=== PATIENT | female | born 1975 | race Hispanic/Latino ===

== ENCOUNTER 2016-09-19 10:12 | Emergency (ER) | payer OTHER ==
[2016-09-19 10:26] VITALS: BP 131/87
[2016-09-19] MEDS ORDERED: MOTRIN PO ONE ×2 (11:09→11:21)
--- NOTE | 2016-09-19 11:22 | Emergency Department Report ---
Upper Extremity - [facility] Chief Complaint: Skin/Abscess/Foreign Body Stated Complaint: LUMP ON RT SHOULDER Time Seen by Provider: 09/19/16 10:58 Upper Extremity: Right Shoulder (pain 7 out of 10. ) Occurred When: 4 Days Severity: mild Symptoms: Yes Pain with Movement (minimal), No Deformity, No Limited Range of Movement, No Numbness, No Weakness, No Swelling, No Bruising/Ecchymosis, No Laceration or Abrasion ED Review of Systems ROS: Stated complaint: LUMP ON RT SHOULDER Other details as noted in HPI This is 41-year-old female that presents with right shoulder pain since last . Patient denies any injury or trauma. Patient stated that laying on her side of her older makes the pain worse. Patient stated a heating pads makes the pain better. Patient describes pain level of 7 out of 10. Denies any drug allergies. Patient stated has slight pain during range of motion. 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 Stated that she carries a lot of trays when working. Patient denies any numbness or tingling sensation. Patient seen toxic or in distress. Comment: All other systems reviewed and negative Constitutional: denies: chills, fever Eyes: denies: eye pain, eye discharge, vision change ENT: denies: ear pain, throat pain Respiratory: denies: cough, shortness of breath, wheezing Cardiovascular: denies: chest pain, palpitations Endocrine: no symptoms reported Gastrointestinal: denies: abdominal pain, nausea, diarrhea Genitourinary: denies: urgency, dysuria, discharge Musculoskeletal: denies: back pain, joint swelling, arthralgia Skin: denies: rash, lesions Neurological: denies: headache, weakness, paresthesias Psychiatric: denies: anxiety, depression Hematological/Lymphatic: denies: easy bleeding, easy bruising ED Past Medical Hx - Past Medical History Previous Medical History?: Yes Additional medical history: thyroid - Surgical History Past Surgical History?: Yes Additional Surgical History: hernia surgery, tubaligation - Social History Smoking Status: Never Smoker Substance Use Type: None - Medications Home Medications: Home Medications Medication Instructions Recorded Confirmed Last Taken Type Ibuprofen [Motrin] 800 mg PO Q8HR PRN #60 tablet 03/22/15 Unknown Rx traMADol [Ultram] 50 mg PO Q6HR PRN #14 tablet 03/22/15 Unknown Rx Naproxen [Naprosyn TAB] 500 mg PO PRN PRN #20 tablet 09/19/16 Unknown Rx Upper Extremity Exam - Exam General: Vital signs noted. No distress. Alert and acting appropriately. Pain 7 out of 10 while performing range of motion. Denies any numbness or tingling sensation. Capillary refill is presents with loss. Denies any trauma or blunt injury to area. No erythema noted or swelling. Negative drop arm. Normal abduction and internal/external rotation. Patient denied tenderness in subacromial space or posterior shoulder Negative Neer test Normal shoulder strength Normal neck exam noted. Patient denies any pain that radiates Right AC joint tenting Head and Torso: No HEENT Abnormality, No Neck Tenderness, No Chest/Lungs Abnormality, No Abdominal Tenderness, No Back Tenderness Shoulder Exam: Yes Shoulder Tenderness, Yes Normal Range of Motion in Shoulder ( slightly pain felt), No Clavicle Tenderness, No Shoulder Deformity, No AC Joint Tenderness Arm Exam: No Arm/Humerus Tenderness, No Arm Deformity Elbow: Yes Normal Range of Motion in Elbow, No Elbow Tenderness, No Elbow Deformity Forearm: No Forearm Tenderness, No Forearm Deformity, No Pain with Pronation, No Pain with Supination Wrist: Yes Normal ROM in Wrist, No Wrist Tenderness, No Wrist Deformity, No Snuffbox Tenderness, No Pain with Axial Thumb Compression Hand: Yes Normal ROM in Digit(s), No Hand Tenderness, No Hand Deformity, No Digit Tenderness, No Digit(s) Deformity, No Tendon Dysfunction CMS Exam: Yes Normal Distal Pulses, Yes Normal Capillary Refill, Yes Normal Distal Sensation, No Broken Skin ED Course Vital Signs 09/19/16 10:24 Temperature 98.3 F Pulse Rate 77 Respiratory 16 Rate Blood Pressure 131/87 O2 Sat by Pulse 100 Oximetry - Reevaluation(s) Reevaluation #1: 09/19/16 13:02 Level now is a 3 out of 10. Stated that she feels much better after receiving ibuprofen ED Medical Decision Making - Medical Decision Making Ed course: A 41-year-old female that presents with right shoulder pain. 1- x-ray results dictated by Dr. Hong: normal study with normal joint aligment 2-I prescribed ibuprofen at this time. Patient level is 3 out of 10 now. She stated that she feels much better. 3-I instructed the patient to RICE follow-up with orthopedic doctor in 3-5 days. 4- at this time of discharge the patient is nontoxic in appearance or in any distress. 5- I ordered a sling of affected extremity 6- at this time the patient is aware of discharge plan and has no further questions. Critical care attestation.: If time is entered above; I have spent that time in minutes in the direct care of this critically ill patient, excluding procedure time. ED Disposition Clinical Impression: Arthralgia of shoulder region, right Shoulder pain, right Qualifiers: Chronicity: acute Qualified Code(s): M25.511 - Pain in right shoulder Disposition: DISCHARGED TO HOME OR SELFCARE Is pt being admited?: No Does the pt Need Aspirin: No Condition: Stable Instructions: Naproxen (By mouth), Arthralgia (ED), RICE Therapy (ED) Additional Instructions: Please follow up with orthopedic doctor in 3-5 days. If pain worsens, such as swelling, numbness, tingling please report back to emergency room. Past, ice, elevation of the affected limb. Prescriptions: Naproxen [Naprosyn TAB] 500 mg PO PRN PRN #20 tablet PRN Reason: Pain Referrals: PRIMARY CARE, [Primary Care Provider] - 3-5 Days ERON DAVID MD [Staff Physician] - 3-5 Days Forms: Work/School Release Form(ED)
--- NOTE | 2016-09-19 12:15 | XRay Report ---
RIGHT SHOULDER: History: Right shoulder pain. Routine views demonstrate normal bony and soft tissue structures with normal joint alignment of the shoulder. IMPRESSION: Normal study.
== END 2016-09-19 13:24 | disposition home or self-care (01) ==
LOC: ED 10:12
DX: M25.511 Pain in right shoulder (principal)

== ENCOUNTER 2019-08-22 13:07 | Outpatient (CLI) | payer BC ==
--- NOTE | 2019-08-22 15:07 | Mammography Report ---
BILATERAL DIGITAL DIAGNOSTIC MAMMOGRAM -- 08/22/2019 RIGHT LIMITED BREAST ULTRASOUND INDICATION: Right lateral breast palpable finding an area of tenderness, patient due for annual bilat eral mammogram. TECHNIQUE: Digital bilateral mammographic imaging was performed. COMPARISON: 05/25/2018, 09/19/2016, 02/17/2016. FINDINGS: Breast Density: There are scattered areas of fibroglandular density. There is a triangular metallic marker which overlies the right lateral breast and mcleod the site of r eported palpable finding for which no mammographic correlate is identified. Right lower axillary tail circumscribed reniform/oval lesion is stable. Long-term stability would support a benign etiology. N o new or suspicious findings within either breast. A targeted ultrasound focused in the region of the palpable finding in the area pain at the 9:00/10:0 0 position was performed. There is no suspicious solid or cystic lesion. No sonographic correlate. In cidentally noted is a 8 x 13 x 5 mm lymph node more posteriorly. This would correspond with the lymph node which appears stable mammographically. IMPRESSION: No mammographic or sonographic correlate to explain reported right lateral breast palpable finding in the area of tenderness. Clinical management is recommended. A routine screening mammogram in one yea r would be appropriate, unless imaging is clinically indicated sooner. BI-RADS Category 2: Benign. Recommend routine screening mammography in one year A "normal" or negative report should not discourage follow up or biopsy of a clinically significant f inding. A written summary of these findings will be mailed to the patient. The patient will be entered into a mammography reporting system which will generate a reminder letter for the patient's next appointmen t at the appropriate interval. According to the [employer], yearly mammograms are recommended starting at age 40 and continuing as long as a woman is in good health. Breast MRI is recommended for women with an rosy roximately 20-25% or greater lifetime risk of breast cancer, including women with a strong family his tory of breast or ovarian cancer and women who have been treated for Hodgkin's disease. Signer Name: Jean Guzman MD Signed: 08/22/2019 3:02 PM Workstation Name: [id number]
== END 2019-08-22 13:08 | disposition home or self-care (01) ==
LOC: MAMMO 13:07
PROVIDERS: ATTEND Advanced Practice Midwife
DX: N60.02 Solitary cyst of left breast (principal)
CPT/HCPCS: 77066